=== PATIENT | male | born 1950 | race Caucasian/White ===

== ENCOUNTER → 2016-12-12 | Outpatient (CLI) | payer OTHER ==
[~2016-12-12] MED LIST: IOPAMIDOL (ISOVUE 370) 100 ML BTL IV ONE
[2016-12-12 14:28] LABS: CREATININE 0.8 mg/dL (0.7-1.3); GLOMERULAR FILTRATION RATE > 60
== END ==
LOC: FIMAGING 13:35
PROVIDERS: ATTEND Surgery
DX: I65.23 Occlusion and stenosis of bilateral carotid arteries (principal); R07.1 Chest pain on breathing; R06.02 Shortness of breath; J40 Bronchitis, not specified as acute or chronic; I67.2 Cerebral atherosclerosis; M50.322 Other cervical disc degeneration at C5-C6 level; J01.00 Acute maxillary sinusitis, unspecified
CPT/HCPCS: 70498; 71275; Q9967